=== PATIENT | female | born 1985 | race Caucasian/White ===

== ENCOUNTER → 2016-06-28 | Outpatient (CLI) | payer OTHER | END | disposition home or self-care (01) | LOC: CFH 09:44 | PROVIDERS: ATTEND Surgery | DX: R10.11 Right upper quadrant pain (principal) | CPT/HCPCS: 76700 ==

== ENCOUNTER → 2016-06-28 | Outpatient (CLI) | payer OTHER ==
[~2016-06-28] MED LIST: SINCALIDE (KINEVAC) 5 MCG ONE
== END | disposition home or self-care (01) ==
LOC: PETCFH 09:38
PROVIDERS: ATTEND Surgery
DX: R10.11 Right upper quadrant pain (principal)
CPT/HCPCS: 78227; A9537; J2805

== ENCOUNTER → 2016-07-05 | Outpatient (CLI) | payer OTHER ==
[~2016-07-05] MED LIST changes: +FLUO10CA13 PO; +LYSI500T11 PO; +PANT40TA5 PO; -SINCALIDE (KINEVAC) 5 MCG ONE
== END | disposition home or self-care (01) ==
LOC: STAR 12:15
PROVIDERS: ATTEND Surgery
DX: Z01.818 Encounter for other preprocedural examination (principal); K82.8 Other specified diseases of gallbladder
CPT/HCPCS: 36415; 84703

== ENCOUNTER 2016-07-09 05:33 | Day surgery (SDC) | payer OTHER ==
[~2016-07-09] VITALS: Ht 162.6 cm; Wt 88.0 kg
[2016-07-09] MEDS ORDERED: LACTATED RINGERS 1,000 ML IV SCH (06:16)
[2016-07-09 06:23] VITALS: BP 121/83
[2016-07-09 06:41] LABS: HCG UR OBC PASS
[2016-07-09] MEDS ORDERED: BUPIVACAINE/PF-EPI 0.25% 1:200K ONE (07:04)
[2016-07-09] MEDS ORDERED: FENTANYL PF 250 MCG/5ML ONE (07:09)
[2016-07-09] MEDS ORDERED: SUCCINYLCHOLINE 20 MG/ML, 10ML ONE (07:38)
[2016-07-09] MEDS ORDERED: CEFAZOLIN 1,000 MG ONE (07:38)
[2016-07-09] MEDS ORDERED: NEOSTIGMINE 1 MG/ML, 10ML ONE (07:38)
[2016-07-09] MEDS ORDERED: ONDANSETRON 2MG/ML, 2ML ONE (07:38)
[2016-07-09] MEDS ORDERED: PROPOFOL 10 MG/ML, 20ML ONE (07:38)
[2016-07-09] MEDS ORDERED: ROCURONIUM 10 MG/ML ONE (07:38)
[2016-07-09] MEDS ORDERED: KETOROLAC 30 MG/1 ML ONE (07:38)
[2016-07-09] MEDS ORDERED: GLYCOPYRROLATE 0.2MG/1ML ONE (07:38)
[2016-07-09] MEDS ORDERED: METOCLOPRAMIDE 5 MG/ML, 2ML ONE (07:38)
[2016-07-09] MEDS ORDERED: OXYcodone 5 MG/5 ML ORAL.SOL UDC PO PRN (08:00)
[2016-07-09] MEDS ORDERED: ACETAMINOPHEN 325 MG TABLET PO PRN (08:00)
[2016-07-09] MEDS ORDERED: ONDANSETRON 2MG/ML, 2ML IVPush PRN (08:00)
[2016-07-09] MEDS ORDERED: MEPERIDINE/PF 25MG/0.5ML IVPush PRN (08:00)
[2016-07-09] MEDS ORDERED: HYDROmorphone 1 MG/ML, 1ML IV PRN (08:00)
[2016-07-09] MEDS ORDERED: LABETALOL 5MG/ML, 20ML IV PRN (08:00)
[2016-07-09] MEDS ORDERED: hydrALAzine 20 MG/ML, 1ML IV PRN (08:00)
[2016-07-09] MEDS ORDERED: MIDAZOLAM 1 MG/ML, 2ML IV PRN (08:00)
[2016-07-09] MEDS ORDERED: BUPIVACAINE/PF-EPI 0.25% 1:200K INFIL ONE ×2 (08:01→08:12)
[2016-07-09] MEDS ORDERED: ACETAMINOPHEN 325 MG TABLET ONE (08:42)
[2016-07-09] MEDS ORDERED: FENTANYL PF 100 MCG/2ML ONE (08:42)
[2016-07-09] MEDS ORDERED: ACETAMINOPHEN 650 MG/20.3 ML UDC ONE (08:42)
[2016-07-09] MEDS ORDERED: OXYcodone 5 MG/5 ML ORAL.SOL UDC ONE (08:42)
[2016-07-09] MEDS: FENTANYL PF 100 MCG/2ML IV PRN ×3 (08:45→09:30)
== END 2016-07-09 11:20 | disposition home or self-care (01) ==
LOC: OUT 05:33
PROVIDERS: ATTEND Surgery
DX: K82.4 Cholesterolosis of gallbladder (principal); F41.9 Anxiety disorder, unspecified; K21.9 Gastro-esophageal reflux disease without esophagitis; Z88.3 Allergy status to other anti-infective agents; Z88.6 Allergy status to analgesic agent; Z72.89 Other problems related to lifestyle; Z87.891 Personal history of nicotine dependence
CPT/HCPCS: 47562; 81025; 88304; C1760; J0330; J0690; J1885; J2405; J2704; J2710; J2765; J3010; J7120; J3490